=== PATIENT | male | born 1970 | race Hispanic/Latino ===

== ENCOUNTER 2021-12-30 17:17 | Emergency (ER) | payer SELFPAY ==
[~2021-12-30] VITALS: Ht 167.6 cm; Wt 108.0 kg
[2021-12-30] MEDS ORDERED: LORTAB5 PO (20:17)
[2021-12-30] MEDS ORDERED: MOTRIN800 MG PO (20:17)
[2021-12-30 20:50] VITALS: BP 113/74
== END 2021-12-30 20:50 | disposition home or self-care (01) | DRG 563 ==
LOC: ED 17:17
DX: S82.041A Displaced comminuted fracture of right patella, initial encounter for closed fracture (principal); S92.001A Unspecified fracture of right calcaneus, initial encounter for closed fracture; W11.XXXA Fall on and from ladder, initial encounter; Y92.89 Other specified places as the place of occurrence of the external cause; Y99.0 Civilian activity done for income or pay